=== PATIENT | female | born 1955 | race African-American/Black ===

== ENCOUNTER 2022-04-25 20:37 | Inpatient (IN) ==
[2022-04-25] MEDS ORDERED: ONDANSETRON ODT 4 MG TABLET PO STA (22:34)
[2022-04-25] MEDS ORDERED: SODIUM CHLORIDE 0.9% 1,000 ML IV STA (22:34)
[2022-04-25] MEDS ORDERED: HYDROmorphone 1 MG/1 ML SYRINGE IV STA (22:34)
[2022-04-25] MEDS ORDERED: PANTOPRAZOLE 40 MG VIAL IV STA (22:34)
[2022-04-25 22:54] LABS: Basophils % 0.1 % (0.0-0.8); Eosinophils # 0.1 10*3/uL (0.0-0.87); Eosinophils % 1.3 % (0.00-10.9); Hematocrit 34.1 VOL% (35.7-47.0); Immature Granulocytes % 0.8 %; Immature Granulocytes Absolute 0.06 #; Lymphocytes # 0.7 10*3/uL (1.4-4.0); Lymphocytes % 8.8 % (21.3-54.2); Mean Corpuscular HGB Conc 32.3 GM/DL (32-36); Mean Corpuscular Volume 86.1 FL (87-102); Mean Platelet Volume 12.4 FL (9.6-12.0); Monocytes # 0.1 10*3/uL (0.11-0.8); Monocytes % 0.8 % (1.7-12.7); Neutrophils % 88.2 % (38.7-73.9); Platelet Count 246 T/CUMM (130-400); Red Blood Count 3.96 MC/CUMM (3.8-5.5); Red Cell Distribution Width 19.4 % (9.3-17.3); White Blood Count 7.6 T/CUMM (4-12)
[2022-04-25 23:07] LABS: Lactic Acid 0.5 MMOL/L (0.4-2.0)
[2022-04-25 23:16] LABS: Albumin 2.9 G/DL (3.4-5.0); Calcium 9.6 MG/DL (8.5-10.1); Osmolality,Calculated 289.4 MOS/KG (273-304); Potassium 3.9 MMOL/L (3.5-5.1); Total Protein 6.8 G/DL (6.4-8.2)
[2022-04-25 23:18] LABS: Bilirubin,Total 25.3 MG/DL (0.20-1.00)
[2022-04-25 23:28] LABS: Bacteria,Urine Moderate /HPF (Few); Mucus,Urine Moderate /LPF (Occasional); RBC,Urine 2 /HPF (0-4); Squamous Epithelial Cell,Urine Few /HPF (0-10)
[2022-04-25 23:29] LABS: Bilirubin,Urine Large mg/dL (Negative); Glucose,Urine (UA) 100 mg/dL (Negative); Ketones,Urine 15 mg/dL (Negative); Nitrite,Urine Negative (Negative); Protein,Urine 100 mg/dL (Negative); Urine Appearance CLOUDY (Clear); Urine Color DARK YELLOW (Yellow); Urine Specific Gravity 1.025 (1.001-1.035)
[2022-04-25 23:30] LABS: Blood, Urine Trace mg/dL (Negative)
[2022-04-26] MEDS ORDERED: HYDROmorphone 1 MG/1 ML SYRINGE IV STA (02:38)
[2022-04-26] MEDS ORDERED: diphenhydrAMINE 50 MG/1 ML VIAL IV STA (04:06)
[2022-04-26] MEDS ORDERED: ACETAMINOPHEN 325 MG TABLET PO PRN (04:34)
[2022-04-26] MEDS ORDERED: diphenhydrAMINE 50 MG/1 ML VIAL IV PRN (04:37)
[2022-04-26 05:31] LABS: Basophils % 0.2 % (0.0-0.8); Eosinophils # 0.1 10*3/uL (0.0-0.87); Hematocrit 31.6 VOL% (35.7-47.0); Hemoglobin 10.1 GM/DL (12.0-16.0); Immature Granulocytes % 0.5 %; Immature Granulocytes Absolute 0.03 #; Lymphocytes # 0.7 10*3/uL (1.4-4.0); Lymphocytes % 11.6 % (21.3-54.2); Mean Corpuscular Volume 86.6 FL (87-102); Mean Platelet Volume 11.9 FL (9.6-12.0); Monocytes # 0.1 10*3/uL (0.11-0.8); Neutrophils % 85.7 % (38.7-73.9); Platelet Count 239 T/CUMM (130-400); Red Blood Count 3.65 MC/CUMM (3.8-5.5); Red Cell Distribution Width 19.4 % (9.3-17.3); White Blood Count 5.9 T/CUMM (4-12)
[2022-04-26 05:51] LABS: Albumin 2.4 G/DL (3.4-5.0); Calcium 9.8 MG/DL (8.5-10.1); Osmolality,Calculated 283.5 MOS/KG (273-304); Potassium 3.7 MMOL/L (3.5-5.1); Total Protein 6.7 G/DL (6.4-8.2)
[2022-04-26 05:52] LABS: Bilirubin,Total 24.5 MG/DL (0.20-1.00)
[2022-04-26] MEDS: SODIUM CHLORIDE 0.9% 1,000 ML IV SCH ×2 (06:24→14:16)
[2022-04-26 06:26] LABS: Anisocytosis 1+; Macrocytosis 1+; Platelet Estimate Normal
[2022-04-26 06:27] LABS: Stomatocytes Few
[2022-04-26] MEDS: APIXABAN 5 MG TABLET PO SCH ×2 (10:25→21:56)
[2022-04-26] MEDS: QUEtiapine 100 MG TABLET PO SCH (10:26)
[2022-04-26] MEDS ORDERED: AZITHROMYCIN INJ 500 MG in SODIUM CHLORIDE 0.9% 250 ML IV ONE (10:30)
[2022-04-26] MEDS ORDERED: BISACODYL 10 MG SUPP RECTAL ONE (11:25)
[2022-04-26 11:29] LABS: INR 0.9; PT Patient Result 10.4 SECS (10.1-12.1)
[2022-04-26] MEDS ORDERED: DIAZEPAM 5 MG TABLET PO ONE (11:31)
[2022-04-26] MEDS: ONDANSETRON 4 MG/2 ML VIAL IV PRN (11:59)
[2022-04-26] MEDS: HYDROmorphone 1 MG/1 ML SYRINGE IV PRN ×2 (12:00→18:03)
[2022-04-26] MEDS: ASPIRIN EC 81 MG TABLET PO SCH (12:13)
[2022-04-26] MEDS: PANTOPRAZOLE 40 MG TABLET PO SCH (12:14)
[2022-04-26] MEDS ORDERED: LEVOFLOXACIN INJ 500 MG/100 ML PREMIX IV ONE (13:41)
[2022-04-26] MEDS ORDERED: fentaNYL 100 MCG/2 ML VIAL ONE (14:45)
[2022-04-26] MEDS ORDERED: NEOSTIGMINE 10 MG/10 ML VIAL ONE (14:45)
[2022-04-26] MEDS ORDERED: propofoL 200 MG/20 ML VIAL IV ONE (14:45)
[2022-04-26] MEDS ORDERED: LIDOCAINE 2% 5 ML VIAL ONE (14:45)
[2022-04-26] MEDS ORDERED: PHENYLEPHRINE 1 MG/10 ML SYRINGE IV ONE (14:45)
[2022-04-26] MEDS ORDERED: SEVOFLURANE 1 UNIT/15 MINUTE INH ONE (14:45)
[2022-04-26] MEDS ORDERED: ROCURONIUM 50 MG/5 ML VIAL IV ONE (14:46)
[2022-04-26] MEDS ORDERED: SODIUM CHLORIDE 0.9% 2,000 ML IV ONE (14:46)
[2022-04-26] MEDS ORDERED: SUCCINYLCHOLINE 200 MG/10 ML VIAL ONE (14:46)
[2022-04-26] MEDS ORDERED: GLYCOPYRROLATE 0.4 MG/2 ML VIAL ONE (14:46)
[2022-04-26] MEDS ORDERED: ONDANSETRON 4 MG/2 ML VIAL ONE (14:46)
[2022-04-26] MEDS ORDERED: PHENYLEPHRINE DRIP 20 MG/250 ML PREMIX IV ONE (14:46)
[2022-04-26] MEDS ORDERED: ePHEDrine 50 MG/ML VIAL ONE (14:46)
[2022-04-26] MEDS: hydroCHLOROthiazide 25 MG TABLET PO SCH (15:05)
[2022-04-26] MEDS: LOSARTAN 50 MG TABLET PO SCH (15:05)
[2022-04-26] MEDS: GABAPENTIN 100 MG CAPSULE PO SCH ×2 (15:06→21:56)
[2022-04-26] MEDS: DOCUSATE SODIUM 100 MG CAPSULE PO SCH (21:56)
[2022-04-27] MEDS: SODIUM CHLORIDE 0.9% 1,000 ML IV SCH ×2 (00:10→18:49)
[2022-04-27] MEDS: HYDROmorphone 1 MG/1 ML SYRINGE IV PRN ×2 (00:17→09:30)
[2022-04-27 04:28] LABS: Basophils % 0.1 % (0.0-0.8); Eosinophils # 0.2 10*3/uL (0.0-0.87); Eosinophils % 2.8 % (0.00-10.9); Hematocrit 28.2 VOL% (35.7-47.0); Immature Granulocytes % 0.6 %; Immature Granulocytes Absolute 0.04 #; Lymphocytes # 0.7 10*3/uL (1.4-4.0); Lymphocytes % 9.8 % (21.3-54.2); Mean Corpuscular HGB Conc 31.9 GM/DL (32-36); Mean Corpuscular Volume 88.7 FL (87-102); Mean Platelet Volume 12.1 FL (9.6-12.0); Monocytes # 0.2 10*3/uL (0.11-0.8); Monocytes % 2.8 % (1.7-12.7); Neutrophils % 83.9 % (38.7-73.9); Platelet Count 194 T/CUMM (130-400); Red Blood Count 3.18 MC/CUMM (3.8-5.5); Red Cell Distribution Width 19.7 % (9.3-17.3); White Blood Count 6.8 T/CUMM (4-12)
[2022-04-27 04:48] LABS: Albumin 2.2 G/DL (3.4-5.0); Bilirubin,Total 9.4 MG/DL (0.20-1.00); Calcium 8.9 MG/DL (8.5-10.1); Osmolality,Calculated 289.8 MOS/KG (273-304); Potassium 3.7 MMOL/L (3.5-5.1); Total Protein 6.2 G/DL (6.4-8.2)
[2022-04-27] MEDS: DOCUSATE SODIUM 100 MG CAPSULE PO SCH ×2 (09:29→21:08)
[2022-04-27] MEDS: ONDANSETRON 4 MG/2 ML VIAL IV PRN ×2 (09:29→19:24)
[2022-04-27] MEDS: POLYETHYLENE GLYCOL POWDER 17 GM PACK PO SCH (09:29)
[2022-04-27] MEDS: QUEtiapine 100 MG TABLET PO SCH ×2 (09:30→09:56)
[2022-04-27] MEDS: GABAPENTIN 100 MG CAPSULE PO SCH ×2 (09:30→21:08)
[2022-04-27] MEDS: PANTOPRAZOLE 40 MG TABLET PO SCH (09:30)
[2022-04-27] MEDS: APIXABAN 5 MG TABLET PO SCH (09:54)
[2022-04-27 11:39] LABS: Folate 11.96 NG/ML (5.38-24.0)
[2022-04-27 11:56] LABS: % Iron Saturation 32.5 % (18-50); Ferritin 748.3 ng/mL (8-252)
[2022-04-28] MEDS: ONDANSETRON 4 MG/2 ML VIAL IV PRN ×2 (01:03→09:58)
[2022-04-28] MEDS: HYDROmorphone 1 MG/1 ML SYRINGE IV PRN (01:07)
[2022-04-28 04:50] LABS: Basophils % 0.2 % (0.0-0.8); Eosinophils # 0.3 10*3/uL (0.0-0.87); Eosinophils % 2.9 % (0.00-10.9); Hematocrit 29.5 VOL% (35.7-47.0); Hemoglobin 9.2 GM/DL (12.0-16.0); Immature Granulocytes % 0.9 %; Immature Granulocytes Absolute 0.08 #; Lymphocytes % 10.9 % (21.3-54.2); Mean Corpuscular HGB Conc 31.2 GM/DL (32-36); Mean Corpuscular Volume 89.7 FL (87-102); Mean Platelet Volume 11.9 FL (9.6-12.0); Monocytes # 0.4 10*3/uL (0.11-0.8); Monocytes % 3.9 % (1.7-12.7); Neutrophils % 81.2 % (38.7-73.9); Platelet Count 217 T/CUMM (130-400); Red Blood Count 3.29 MC/CUMM (3.8-5.5); Red Cell Distribution Width 19.1 % (9.3-17.3)
[2022-04-28 05:14] LABS: Albumin 2.2 G/DL (3.4-5.0); Bilirubin,Total 6.3 MG/DL (0.20-1.00); Calcium 9.1 MG/DL (8.5-10.1); Osmolality,Calculated 279.8 MOS/KG (273-304); Potassium 3.6 MMOL/L (3.5-5.1); Total Protein 6.7 G/DL (6.4-8.2)
[2022-04-28] MEDS: GABAPENTIN 100 MG CAPSULE PO SCH ×2 (09:58→20:59)
[2022-04-28] MEDS: POLYETHYLENE GLYCOL POWDER 17 GM PACK PO SCH (09:58)
[2022-04-28] MEDS: PANTOPRAZOLE 40 MG TABLET PO SCH (09:58)
[2022-04-28] MEDS: ASPIRIN EC 81 MG TABLET PO SCH (09:58)
[2022-04-28] MEDS: DOCUSATE SODIUM 100 MG CAPSULE PO SCH ×2 (09:58→20:59)
[2022-04-28] MEDS: AZITHROMYCIN INJ 500 MG in SODIUM CHLORIDE 0.9% 250 ML IV SCH (09:59)
[2022-04-28] MEDS ORDERED: PROMETHAZINE INJ 12.5 MG in SODIUM CHLORIDE 0.9% 50 ML IV ONE (11:52)
[2022-04-28] MEDS ORDERED: LINACLOTIDE 145 MCG CAPSULE PO ONE (11:53)
[2022-04-28] MEDS: SODIUM CHLORIDE 0.9% 1,000 ML IV SCH (13:01)
[2022-04-28] MEDS: ENOXAPARIN 100 MG/ML SYRINGE SUBCUT SCH (18:28)
[2022-04-28] MEDS: QUEtiapine 100 MG TABLET PO SCH (20:59)
[2022-04-29] MEDS: ONDANSETRON 4 MG/2 ML VIAL IV PRN ×3 (02:27→16:39)
[2022-04-29 05:00] LABS: Basophils % 0.1 % (0.0-0.8); Eosinophils # 0.1 10*3/uL (0.0-0.87); Eosinophils % 1.1 % (0.00-10.9); Hematocrit 29.2 VOL% (35.7-47.0); Immature Granulocytes % 0.8 %; Immature Granulocytes Absolute 0.08 #; Mean Corpuscular HGB Conc 30.8 GM/DL (32-36); Mean Corpuscular Volume 89.8 FL (87-102); Mean Platelet Volume 11.9 FL (9.6-12.0); Monocytes # 0.6 10*3/uL (0.11-0.8); Monocytes % 5.3 % (1.7-12.7); Neutrophils % 82.7 % (38.7-73.9); Platelet Count 239 T/CUMM (130-400); Red Blood Count 3.25 MC/CUMM (3.8-5.5); Red Cell Distribution Width 18.7 % (9.3-17.3); White Blood Count 10.3 T/CUMM (4-12)
[2022-04-29] MEDS: ENOXAPARIN 100 MG/ML SYRINGE SUBCUT SCH ×2 (05:11→17:59)
[2022-04-29 05:29] LABS: Albumin 2.4 G/DL (3.4-5.0); Bilirubin,Total 5.9 MG/DL (0.20-1.00); Calcium 9.2 MG/DL (8.5-10.1); Osmolality,Calculated 278.7 MOS/KG (273-304); Potassium 3.5 MMOL/L (3.5-5.1); Total Protein 7.1 G/DL (6.4-8.2)
[2022-04-29] MEDS: DOCUSATE SODIUM 100 MG CAPSULE PO SCH ×2 (08:42→22:38)
[2022-04-29] MEDS: LOSARTAN 50 MG TABLET PO SCH (08:43)
[2022-04-29] MEDS: PANTOPRAZOLE 40 MG TABLET PO SCH (08:44)
[2022-04-29] MEDS: GABAPENTIN 100 MG CAPSULE PO SCH ×2 (08:44→22:39)
[2022-04-29] MEDS: POLYETHYLENE GLYCOL POWDER 17 GM PACK PO SCH (08:44)
[2022-04-29] MEDS: HYDROmorphone 1 MG/1 ML SYRINGE IV PRN ×2 (09:28→16:41)
[2022-04-29] MEDS: hydroCHLOROthiazide 25 MG TABLET PO SCH (10:04)
[2022-04-29] MEDS: AZITHROMYCIN INJ 500 MG in SODIUM CHLORIDE 0.9% 250 ML IV SCH (10:07)
[2022-04-29] MEDS: PROMETHAZINE 25 MG TABLET PO PRN ×2 (12:10→22:38)
[2022-04-29] MEDS ORDERED: hydrALAZINE 20 MG/1 ML VIAL IV PRN (13:20)
[2022-04-29] MEDS: SODIUM CHLORIDE 0.9% 1,000 ML IV SCH (16:42)
[2022-04-29] MEDS: QUEtiapine 100 MG TABLET PO SCH (22:39)
[2022-04-30] MEDS: HYDROmorphone 1 MG/1 ML SYRINGE IV PRN ×2 (01:19→08:19)
[2022-04-30 06:11] LABS: Albumin 2.5 G/DL (3.4-5.0); Bilirubin,Total 6.1 MG/DL (0.20-1.00); Calcium 10.2 MG/DL (8.5-10.1); Osmolality,Calculated 285.3 MOS/KG (273-304); Potassium 3.3 MMOL/L (3.5-5.1); Total Protein 7.3 G/DL (6.4-8.2)
[2022-04-30] MEDS ORDERED: POTASSIUM CHLORIDE 20 MEQ TABLET PO ONE (07:30)
[2022-04-30] MEDS: ENOXAPARIN 100 MG/ML SYRINGE SUBCUT SCH (07:48)
[2022-04-30] MEDS: SODIUM CHLORIDE 0.9% 1,000 ML IV SCH (07:49)
[2022-04-30] MEDS: PROMETHAZINE 25 MG TABLET PO PRN (07:49)
[2022-04-30] MEDS ORDERED: HYDROmorphone 2 MG TABLET PO PRN (09:11)
[2022-04-30] MEDS ORDERED: PROMETHAZINE 25 MG TABLET PO PRN (09:12)
[2022-04-30] MEDS: LOSARTAN 50 MG TABLET PO SCH (09:53)
[2022-04-30] MEDS: hydroCHLOROthiazide 25 MG TABLET PO SCH (09:53)
[2022-04-30] MEDS: PANTOPRAZOLE 40 MG TABLET PO SCH (09:53)
[2022-04-30] MEDS: GABAPENTIN 100 MG CAPSULE PO SCH (09:54)
[2022-04-30] MEDS: ASPIRIN EC 81 MG TABLET PO SCH (09:54)
[2022-04-30] MEDS: DOCUSATE SODIUM 100 MG CAPSULE PO SCH (09:54)
[2022-04-30] MEDS: POLYETHYLENE GLYCOL POWDER 17 GM PACK PO SCH (09:55)
[2022-04-30 12:13] VITALS: BP 141/88
== END 2022-04-30 12:58 | disposition home health service (06) | DRG 435 ==
LOC: N.ED 20:37 → N.EDINP 04-26 04:34 → SUATTDRO 04-26 04:34 → N.TELES 04-26 05:11
PROVIDERS: ADMIT Internal Medicine; ATTEND Internal Medicine